=== PATIENT | female | born 1975 | race American Indian/Alaskan Native ===

== ENCOUNTER 2018-07-30 12:46 | Outpatient (CLI) | payer MEDICAID | END 2018-07-30 12:47 | disposition home or self-care (01) | LOC: WOUND 12:46 | PROVIDERS: ATTEND Surgery | DX: L73.2 Hidradenitis suppurativa (principal) | CPT/HCPCS: 99215; G0463 ==

== ENCOUNTER 2018-09-05 09:45 | Outpatient (CLI) | payer MEDICAID ==
[2018-09-05] MEDS ORDERED: XYLOCAINE TOPICAL 4% TP ONE ×2 (10:14→10:24)
[2018-09-05] MEDS ORDERED: SILVER NITRATE TP ONE (10:37)
== END 2018-09-05 09:46 | disposition home or self-care (01) ==
LOC: WOUND 09:45
PROVIDERS: ATTEND Surgery
DX: S41.102D Unspecified open wound of left upper arm, subsequent encounter (principal); S41.101D Unspecified open wound of right upper arm, subsequent encounter; L73.2 Hidradenitis suppurativa; X58.XXXD Exposure to other specified factors, subsequent encounter
CPT/HCPCS: 17250; G0463; 99215

== ENCOUNTER 2018-09-12 09:29 | Outpatient (CLI) | payer MEDICAID ==
[2018-09-12] MEDS ORDERED: XYLOCAINE TOPICAL 4% TP ONE (09:35)
== END 2018-09-12 09:30 | disposition home or self-care (01) ==
LOC: WOUND 09:29
PROVIDERS: ATTEND Surgery
DX: L73.2 Hidradenitis suppurativa (principal)
CPT/HCPCS: 99214; G0463

== ENCOUNTER 2018-10-02 10:03 | Outpatient (CLI) | payer MEDICAID | END 2018-10-02 10:04 | disposition home or self-care (01) | LOC: WOUND 10:03 | PROVIDERS: ATTEND Surgery | DX: L73.2 Hidradenitis suppurativa (principal) | CPT/HCPCS: 99214; G0463 ==